=== PATIENT | male | born 1990 | race Caucasian/White ===

== ENCOUNTER 2016-10-16 13:31 | Observation (INO) ==
[2016-10-16 14:06] LABS: Bilirubin,Urine Negative (Negative); Blood,Urine Negative (Negative); Clarity,Urine Clear (Clear); Color,Urine Yellow (Yellow); Glucose,Urine (UA) Normal (Normal); Ketones,Urine Negative (Negative); Leukocyte Esterase,Urine Negative (Negative); Nitrite,Urine Negative (Negative); PH,Urine 5.5 pH Units (5.0-8.0); Protein,Urine Negative (Neg-Trace); Specific Gravity,Urine 1.027 (1.010-1.025); Urobilinogen,Urine Normal (Normal)
--- NOTE | 2016-10-16 14:10 | Emergency Department Note ---
Disposition Clinical Impression: Appendicitis Qualifiers: Appendicitis type: acute appendicitis Acute appendicitis type: unspecified acute appendicitis type Qualified Code(s): K35.80 - Unspecified acute appendicitis Disposition: Admitted As Inpatient Condition: Good Referrals: NO,PCP [Primary Care Provider] - Forms: Work/School Release, ED Satisfaction Letter Abdominal Pain HPI - General Chief Complaint: ED Abdominal Pain Stated Complaint: sent from UC// appendix problems Time Seen by Provider: 10/16/16 13:44 Source: patient Mode of arrival: ambulatory Limitations: no limitations Nursing Notes Reviewed: Yes Vital Signs Reviewed: Yes - History of Present Illness Pt Subjective Complaint: abdominal pain Onset (ago): day(s) (1) Consistency: constant Location: RLQ Pain Scale: 4 Quality: aching Migration to: RLQ Improves with: nothing Worsens with: movement Associated symptoms: Reports: denies other symptoms Treatments prior to arrival: none - Related Data Allergies Allergy/AdvReac Type Severity Reaction Status Date / Time No Known Allergies Allergy Verified 10/16/16 11:49 All systems ED: reviewed and negative except as stated. Constitutional: Denies: fever, chills Gastrointestinal: Denies: nausea, vomiting Abdominal Pain PMH - Past Medical History Medical history: Reports: no medical history Male Surgical History: Reports: no surgical history Psychiatric history: Reports: no psych history - Social History Smoking status: Never smoker Alcohol use: Reports: none Drug use: Reports: none Physical Exam - General Limitations: no limitations General appearance: alert - Head Head exam: atraumatic, normocephalic, normal inspection - Eye Eye exam: Present: normal appearance, PERRL, EOMI - Expanded Eye Exam Pupils: Left: reactive - ENT ENT exam: normal exam, normal oropharynx, mucous membranes moist - Expanded ENT Exam External ear exam: Present: normal external inspection Mouth exam: Present: normal external inspection Teeth exam: Present: normal inspection Throat exam: Present: normal inspection - Neck Neck exam: Present: normal inspection, full ROM, trachea midline - Chest Chest inspection: Present: normal inspection, symmetric chest wall rise - Respiratory Respiratory exam: Present: normal lung sounds bilaterally - Cardiovascular Cardiovascular exam: Present: regular rate, normal rhythm, normal heart sounds - Abdominal Exam Abdominal exam: Present: soft, guarding, normal bowel sounds Abdominal tenderness: Present: RLQ, moderate - Extremities Exam Extremities exam: Present: normal inspection, full ROM. Absent: tenderness, pedal edema - Expanded Upper Extremity Exam Shoulder exam: Present: normal inspection, full ROM Arm exam: Present: normal inspection, full ROM Elbow exam: Present: normal inspection, full ROM Forearm/Wrist exam: Present: normal inspection, full ROM Hand exam: Present: normal inspection, full ROM Vascular exam: Normal: capillary refill, radial pulse - Expanded Lower Extremity Exam Hip/Pelvis exam: Present: normal inspection, full ROM Upper leg exam: Present: normal inspection, full ROM Knee exam: Present: normal inspection, full ROM Lower leg exam: Present: normal inspection, full ROM Ankle exam: Present: normal inspection, full ROM Foot/toe exam: Present: normal inspection, full ROM Neurovascular/Tendon exam: Absent: motor deficit, sensory deficit, tendon deficit - Back Exam Back exam: Present: normal inspection, full ROM. Absent: tenderness - Neurological Exam Neurological exam: Present: alert, oriented X3 - Expanded Neurological Exam Patient oriented to: Present: person, place, time Coma Scale Eye Opening: Spontaneous Coma Scale Motor Response: Obeys Commands Coma Scale Verbal Response: Oriented Coma Scale Total: 15 - Psychiatric Psychiatric exam: Present: normal affect, normal mood - Skin Skin exam: Present: warm, dry, intact, normal color Course - Consultations Consultation #1: DR. BEAL WILL BE TO THE ER TO SEE THE PATIENT Time: 16:02 Vital Signs Temperature 98.3 F 10/16/16 13:42 Pulse Rate 67 10/16/16 13:42 Respiratory Rate 14 10/16/16 13:42 Blood Pressure 128/76 10/16/16 13:42 O2 Sat by Pulse Oximetry 96 10/16/16 13:42 Temperature 98.3 F 10/16/16 13:42 Pulse Rate 70 10/16/16 15:13 Respiratory Rate 18 10/16/16 15:13 Blood Pressure 120/75 10/16/16 15:13 O2 Sat by Pulse Oximetry 98 10/16/16 15:13 Oxygen Delivery Oxygen Delivery Room Air Abdominal Pain - Differential Diagnosis Differential Diagnosis: Likely: acute appendicitis, constipation, diverticulitis , gastroenteritis, pancreatitis - Medical Records Medical records reviewed: Yes I reviewed the patient's medical records. - Lab Data Lab results reviewed: Yes I reviewed the patient's lab results. Result diagrams: 10/16/16 14:08 10/16/16 14:08 Lab Results 10/16/16 10/16/16 10/16/16 Range/Units 13:57 14:08 14:08 WBC 6.4 (4.3-11.1) K/mcL RBC 5.80 H (4.19-5.50) M/mcL Hgb 16.2 (12.9-16.9) g/dL Hct 47.7 (37.5-50.1) % MCV 82.2 L (83.0-100.0) fL MCH 27.9 L (28.0-33.3) pg MCHC 34.0 (31.6-35.5) g/dL RDW 12.5 (11.5-14.5) % Plt Count 212 (140-400) K/mcL MPV 10.4 (9.4-12.4) fL Immature Gran % 0.3 (0-4) % Seg Neutrophils % 66.1 % Lymphocytes % 22.3 % Monocytes % 7.5 % Eosinophils % 3.6 % Basophils % 0.2 % Neutrophils # 4.2 (1.6-8.9) K/mcL Lymphocytes # 1.4 (0.6-4.6) K/mcL Monocytes # 0.5 (0.0-1.3) K/mcL Eosinophils # 0.2 (0.0-0.6) K/mcL Basophils # 0.0 (0.0-0.2) K/mcL Sodium 139 (136-145) mEq/L Potassium 3.8 (3.5-4.5) mEq/L Chloride 108 (98-109) mEq/L Carbon Dioxide 24 (19-29) mEq/L BUN 14 (8-26) mg/dL Creatinine 0.96 (0.72-1.25) mg/dL Est GFR ( Amer) > 60 (> 60) Est GFR (Non-Af Amer) > 60 (> 60) BUN/Creatinine Ratio 15 (6-26) Glucose 95 (70-99) mg/dL Calculated Osmolality 288 (280-300) Calcium 9.6 (8.6-10.8) mg/dL Total Bilirubin 0.9 (0.2-1.2) mg/dL Direct Bilirubin 0.3 (0.0-0.5) mg/dL Indirect Bilirubin 0.6 (0.0-1.2) mg/dL AST 15 (5-34) Units/L ALT 9 (0-55) Units/L Alkaline Phosphatase 70 (38-126) Units/L C-Reactive Protein 22 H (Less than 5) mg/L Serum Total Protein 7.8 (6.0-8.3) g/dL Albumin 4.3 (3.5-5.0) g/dL Globulin 3.5 (2.4-3.5) g/dL Albumin/Globulin Ratio 1.2 (1.1-2.2) Lipase 9 (8-78) Units/L Urine Color Yellow (Yellow) Urine Clarity Clear (Clear) Urine pH 5.5 (5.0-8.0) pH Units Ur Specific [place] 1.027 H (1.010-1.025) Urine Protein Negative (Neg-Trace) mg/dL Urine Glucose (UA) Normal (Normal) mg/dL Urine Ketones Negative (Negative) mg/dL Urine Blood Negative (Negative) Urine Nitrite Negative (Negative) Urine Bilirubin Negative (Negative) Urine Urobilinogen Normal (Normal) mg/dL Ur Leukocyte Esterase Negative (Negative) Ur Culture Indicated? NO (NO) - Radiology Data Radiology results reviewed: Yes I reviewed the patient's radiology results.
[2016-10-16 14:15] LABS: Basophils % 0.2 %; Eosinophils # 0.2 K/mcL (0.0-0.6); Eosinophils % 3.6 %; Hematocrit 47.7 % (37.5-50.1); Hemoglobin 16.2 g/dL (12.9-16.9); Immature Granulocytes % 0.3 % (0-4); Lymphocytes # 1.4 K/mcL (0.6-4.6); Lymphocytes % 22.3 %; Mean Corpuscular Hemoglobin 27.9 pg (28.0-33.3); Mean Corpuscular Volume 82.2 fL (83.0-100.0); Mean Platelet Volume 10.4 fL (9.4-12.4); Monocytes # 0.5 K/mcL (0.0-1.3); Monocytes % 7.5 %; Neutrophils # 4.2 K/mcL (1.6-8.9); Platelet Count 212 K/mcL (140-400); Red Cell Distribution Width 12.5 % (11.5-14.5); Segmented Neutrophils % 66.1 %
[2016-10-16 14:37] LABS: Alanine Aminotransferase 9 Units/L (0-55); Albumin 4.3 g/dL (3.5-5.0); Albumin/Globulin Ratio 1.2 (1.1-2.2); Alkaline Phosphatase 70 Units/L (38-126); Aspartate Amino Transferase 15 Units/L (5-34); BUN/Creatinine Ratio 15 (6-26); Bilirubin,Direct 0.3 mg/dL (0.0-0.5); Bilirubin,Indirect 0.6 mg/dL (0.0-1.2); Bilirubin,Total 0.9 mg/dL (0.2-1.2); Blood Urea Nitrogen 14 mg/dL (8-26); Calcium 9.6 mg/dL (8.6-10.8); Carbon Dioxide 24 mEq/L (19-29); Chloride 108 mEq/L (98-109); Globulin 3.5 g/dL (2.4-3.5); Glucose 95 mg/dL (70-99); Lipase 9 Units/L (8-78); Osmolality,Calculated 288 (280-300); Potassium 3.8 mEq/L (3.5-4.5); Sodium 139 mEq/L (136-145); Total Protein 7.8 g/dL (6.0-8.3); eGFR For African Americans > 60 (> 60); eGFR For Non-African Americans > 60 (> 60)
[2016-10-16 14:48] LABS: C-Reactive Protein 22 mg/L (Less than 5)
--- NOTE | 2016-10-16 17:00 | Anesthesia Evaluation PreOp ---
Date of Encounter: 10/16/16 Time of Encounter: 16:56 - Past History Planned Operation: Lap. Appy Cardiac History: Denies any Significant Hx Pulmonary History: Denies Any Significant HX COMPUTING CONSULTANT History: Denies Any Significant HX Other Medical History: Denies Any Significant HX Anesthesia History: No Prior Anesthetic Complications, Past Anesthesia Alcohol Use: none Drug use: none Medications and Allergies No Known Home Drugs 10/16/16 [History] Allergies No Known Allergies Allergy (Verified 10/16/16 11:49) - Meds/Allergy Pre-op Review Medications Reviewed: Yes Allergies Reviewed: Yes Beta Blockers on Current Med List: No Anesthesia Results - Labs 10/16/16 14:08 10/16/16 14:08 Anesthesia Exam O2 Sat Height 1.75 m Weight 88.451 kg O2 Sat by Pulse Oximetry 98 O2 Sat by Pulse Oximetry 96 Vital Signs Temp Pulse Resp BP Pulse Ox 98.3 F 67 14 128/76 96 10/16/16 13:42 10/16/16 13:42 10/16/16 13:42 10/16/16 13:42 10/16/16 13:42 Vital Signs/O2 Sat, Most Current Temp Pulse Resp BP Pulse Ox 98.3 F 70 18 120/75 98 10/16/16 13:42 10/16/16 15:13 10/16/16 15:13 10/16/16 15:13 10/16/16 15:13 Height: 5'9'' Weight: 195 NPO (# of Hours): > 8 hrs Pain Scale: 0 Pain Scale Used: Numeric (1 - 10) - HEENT Pupil (Motor): Pupils equal, EOMI Mallampati: I Teeth: Normal Oral Opening: Greater than 3 - COMPUTING CONSULTANT LOC: Oriented COMPUTING CONSULTANT Motor: Normal RUE, Normal LUE, Normal RLE, Normal LLE, Normal Face COMPUTING CONSULTANT Sensory: Normal: RUE, LUE, RLE, LLE, Face - Cardiac Rhythm: Regular Murmur: None JVD: No Carotid Bruit: No - Pulmonary Breath Sounds: bilateral Clear Respiratory Effort: Symmetrical Anesthesia Assess/Plan ASA Score: 1, E Modified Faiza Scale for Level of Consciousness: Cooperative, oriented, and tranquil Anesthetic Plan: General Autologous Blood: Yes Monitoring Plan: Standard Monitors Recovery Plan: PACU
[2016-10-16] MEDS ORDERED: Ondansetron 4 MG/2 ML VIAL IVP ONE (17:03)
[2016-10-16] MEDS ORDERED: *HR* Promethazine 25 MG/ML VIAL IVP PRN (17:03)
[2016-10-16] MEDS ORDERED: *HR* HYDROmorphone (PF) 1 MG/ML SYRINGE IVP PRN ×2 (17:03→19:50)
[2016-10-16] MEDS ORDERED: Albuterol 2.5 MG/3 ML NEBULIZER IH ONE (17:03)
[2016-10-16] MEDS ORDERED: *HR* Labetalol 20 MG/4 ML SYRINGE IVP PRN (17:03)
--- NOTE | 2016-10-16 17:03 | General Surg History&Physical ---
<Nahed Cheung - Last Filed: 10/16/16 16:58> Date of Encounter: 10/16/16 Time of Encounter: 16:58 Assessment and Plan (1) Appendicitis Current Visit: Yes Status: Acute The assessment and plan as outlined above was discussed with the patient and/or family members who expressed understanding and agreement. All questions were answered. Patient presents with signs and symptoms of acute appendicitis. CT scan demonstrated dilated appendix with evidence of inflammation. CT may be lagging behind given his clinical findings. He does have exquisite point tenderness at McBurney's point. Rovsing negative. Psoas/obturator positive. No tachycardia or peritoneal signs/rebound/guarding/rigidity. No elevated white cell count/leukocytosis or fever. Surgical intervention vs medical management discussed. Patient elected for surgical intervention at this time. Plan: Acute appendicitis Nothing by mouth IV fluids Supportive care and pain control Laparoscopic appendectomy to reduce the chances of perforation and intra- abdominal abscess formation. Risks, benefits, alternatives, expected outcomes reviewed with the patient is agreement to proceed to the operating room with for laparoscopic appendectomy in the next 24 hours. Written Consent was obtained and placed in the chart. Qualifiers: Appendicitis type: acute appendicitis Acute appendicitis type: unspecified acute appendicitis type Qualified Code(s): K35.80 - Unspecified acute appendicitis History of Present Illness Chief complaint: Abdominal pain HPI: Mr. Cole is a 26 year old male with no significant past medical history who presents with signs and symptoms of acute appendicitis. Patient describes that yesterday afternoon he developed achy cramping periumbilical abdominal pain that became so intense it became unbearable at 10/10 pain however, he tried to work through it despite the intense nauseous feelings. Patient reports that he did not vomit however, his appetite was significantly decreased around dinnertime he tried to eat a small amount but had no interest in food. This morning he awoke with right lower quadrant pain "the pain had moved "and was more intense described as persistent sharp stabbing pain located in the right lower quadrant with no alleviating factors, exacerbated with ambulation or movement of his abdomen. Patient states that he went to the [place] urgent care and was transferred to the emergency department for further evaluation. No abdominal surgeries Last meal was around [address] scan demonstrated dilated appendix with evidence of inflammation. Patient did not have an elevated white cell count/leukocytosis however he does have exquisite tenderness at McBurney's point. Surgical intervention is indicated at this time. Past Med Surg Social Fam HX - Past Medical History Medical history: no medical history Psychiatric history: no psych history - Social History Smoking Status: Never smoker Smokeless Tobacco Status: No Alcohol use: none Drug use: none Medications and Allergies No Known Home Drugs 10/16/16 [History] Allergies No Known Allergies Allergy (Verified 10/16/16 11:49) Review of Systems All systems PM: A 10-system review of systems was performed and is negative for pertinent findings except as documented above in the HPI. - Constitutional anorexia, no chills, no fever(s) - EENT Nose, mouth and throat: no dizziness, no headache(s), no neck pain, no sore throat, no throat swelling, no tongue swelling, no vertigo - Cardiovascular no chest pain, no dyspnea, no edema - Respiratory no cough, no wheezing - Gastrointestinal abdominal pain, cramping, nausea, no belching, no bloating, no coffee ground emesis, no constipation, no diarrhea, no dyspepsia, no dysphagia, no hematemesis , no hematochezia, no melena, no vomiting - Genitourinary no hematuria - Musculoskeletal no arthralgias, no atrophy, no joint swelling, no muscle cramps, no muscle weakness, no myalgias - Integumentary no lesions, no pruritus, no jaundice - Neurological no confusion, no loss of vision, no syncope - Psychiatric no anxiety, no confusion, no depression - Endocrine no palpitations, no polydipsia, no polyphagia, no polyuria - Hematologic/Lymphatic no easy bleeding, no easy bruising, no lymphadenopathy - Allergic/Immunologic no tongue swelling, no throat swelling, no uticaria, no wheezing General Surgery Exam Initial Vital Signs Temp Pulse Resp BP Pulse Ox 98.3 F 67 14 128/76 96 10/16/16 13:42 10/16/16 13:42 10/16/16 13:42 10/16/16 13:42 10/16/16 13:42 - General physical appearance well developed, well nourished, no distress, moderate pain - Eyes PERRL, normal ocular movement - ENT normal mucosa, atraumatic, normocephalic, CN 2-12 grossly intact - Neck no masses, trachea midline, no lymphadectomy - Respiratory normal expansion, normal respiratory effort, clear to auscultation - Cardiovascular Cardiovascular exam: Present: RRR, no murmurs/rubs/gallops. Absent: JVD - Abdomen Abdomen general surgery: Present: bowel sounds present, soft. Absent: guarding , rigid Abdominal Tenderness: Present: RLQ (Exquisite point tenderness over right lower quadrant/McBurney's point) - Integumentary Integumentary general surgery: Present: warm and dry, no abnormal pigmentation - Neurologic Present: CN 2-12 grossly intact, normal coordination, normal sensation - Musculoskeletal Present: normal gait, normal posture - Psychiatric Psychiatric general surgery: Present: A&Ox3, appropriate, speech is normal, memory intact Results - Labs 10/16/16 14:08 10/16/16 14:08 Abnormal lab results RBC 5.80 M/mcL (4.19-5.50) H 10/16/16 14:08 MCV 82.2 fL (83.0-100.0) L 10/16/16 14:08 MCH 27.9 pg (28.0-33.3) L 10/16/16 14:08 C-Reactive Protein 22 mg/L (Less than 5) H 10/16/16 14:08 Ur Specific [place] 1.027 (1.010-1.025) H 10/16/16 13:57 All other labs normal. <Zackery Swift - Last Filed: 10/16/16 19:53> Date of Encounter: 10/16/16 History of Present Illness HPI: Mr. Cole is a 26 year old male Review of Systems All systems PM: A 10-system review of systems was performed and is negative for pertinent findings except as documented above in the HPI. General Surgery Exam Initial Vital Signs Temp Pulse Resp BP Pulse Ox 98.3 F 67 14 128/76 96 10/16/16 13:42 10/16/16 13:42 10/16/16 13:42 10/16/16 13:42 10/16/16 13:42 Results - Labs 10/16/16 14:08 10/16/16 14:08 Abnormal lab results RBC 5.80 M/mcL (4.19-5.50) H 10/16/16 14:08 MCV 82.2 fL (83.0-100.0) L 10/16/16 14:08 MCH 27.9 pg (28.0-33.3) L 10/16/16 14:08 C-Reactive Protein 22 mg/L (Less than 5) H 10/16/16 14:08 Ur Specific [place] 1.027 (1.010-1.025) H 10/16/16 13:57 All other labs normal. - Attending Attestation I examined this patient and my medical decision-making was reviewed with the FARM CONTRACTOR BUYER/PA/Advanced Practice Nurse/Resident Physician. I agree with the documented findings, disposition and treatment plan as described except to the extent set forth below. The patient is seen and evaluated in the emergency room. I personally examined the patient as well as reviewed his CAT scan results. I have recommended appendectomy for acute appendicitis. We will proceed on an urgent basis later today. Zackery Swift MD FACS
[2016-10-16] MEDS ORDERED: Ondansetron 4 MG/2 ML VIAL ONE (17:08)
[2016-10-16] MEDS ORDERED: Lidocaine -MPF 2% 2 ML VIAL ONE (17:08)
[2016-10-16] MEDS ORDERED: *HR* Rocuronium Bromide 50 MG/5 ML VIAL ONE (17:08)
[2016-10-16] MEDS ORDERED: Dexamethasone 4 MG/ML VIAL ONE (17:08)
[2016-10-16] MEDS ORDERED: *HR* Succinylcholine 200 MG/10 ML VIAL IVP ONE (17:08)
[2016-10-16] MEDS ORDERED: *HR* FentaNYL (PF) 100 MCG/2 ML VIAL ONE (17:09)
[2016-10-16] MEDS ORDERED: *HR* Midazolam HCl 2 MG/2 ML VIAL ONE (17:09)
[2016-10-16] MEDS ORDERED: *HR* Propofol 200 MG/20 ML VIAL IVP ONE (17:09)
[2016-10-16] MEDS ORDERED: CefOXitin 1,000 MG VIAL ONE (17:17)
[2016-10-16] MEDS ORDERED: CefOXitin 2,000 MG VIAL IVPB ONE (17:55)
[2016-10-16] MEDS ORDERED: Neostigmine Methylsulfate 3 MG/3 ML SYRINGE ONE (19:02)
[2016-10-16] MEDS ORDERED: Ketorolac 30 MG/ML VIAL ONE (19:08)
[2016-10-16] MEDS: *HR* HYDROmorphone (PF) 1 MG/ML SYRINGE IVP PRN ×2 (19:15→19:21)
--- NOTE | 2016-10-16 19:22 | Operative Note ---
Date of procedure: 10/16/16 Pre-op diagnosis: Acute appendicitis Post-op diagnosis: same Procedure: Laparoscopic appendectomy Anesthesia: VICTOR HUGO Surgeon: Zackery Swift Estimated blood loss (cc): 20 Condition: stable Disposition: floor Procedure in Detail: After informed consent the patient was taken to the major operative suite and placed in supine position and given adequate general endotracheal anesthesia. Timeout taken patient is identified. The abdomen is prepped and draped in sterile fashion utilizing ChloraPrep standard draping techniques. Vertical midline incision is made just below the umbilicus and dissected down to level of fascia 2 traction stitches were placed. The Anderson trocar was placed visualizing the abdomen and the abdomen was insufflated to 15 mmHg pressure CO2. I placed a 5 mm trocar in the suprapubic area and a 12 mm trocar in the right subcostal area. The appendix was visualized and acutely inflamed but there was no pus. I opened the window between the mesial appendix and the [place] the cecum. The base the cecum was divided with a gastrointestinal load of the laparoscopic stapler. The mesoappendix was divided with a vascular load on the stapler. This gave an excellent technical result and excellent hemostasis. The appendix was removed in a specimen bag through the umbilical port site the umbilical port was replaced. I irrigated with copious amounts of antibiotic containing solution. There was no evidence of bleeding or staple line leak. All trochars were removed fascia was closed with 0 Vicryl skin with 201 4-0 Vicryl. He tolerated the procedure very well and was transferred to recovery in stable condition.
--- NOTE | 2016-10-16 19:44 | Anesthesia Evaluation Post Op ---
Date of Encounter: 10/16/16 Time of Encounter: 19:43 - Vital Signs Vital Signs: Last Vital Signs Temp 98.5 F 10/16/16 19:42 Pulse 65 10/16/16 19:42 Resp 14 10/16/16 19:42 BP 114/65 10/16/16 19:42 Pulse Ox 94 10/16/16 19:42 - Lungs Lungs: Clear Ascult./Percussion - Airway Airway: Non-obstructed - Cardiovascular Regular Rate - Mental Status Mental Status: Alert & Oriented, Answers Appropriately - Pain Pain Scale: 4 - Nausea Vomiting Nausea Vomiting: Not Present - Hydration Hydration: Ice chips - Discharge PostOp Status: Transfer Patient to floor
[2016-10-16] MEDS ORDERED: 0.9 % Sodium Chloride 1,000 ML IVC SCH (19:50)
[2016-10-16] MEDS ORDERED: *HR* OxyCODONE/APAP 5/325 TABLET PO PRN (19:50)
[2016-10-16] MEDS ORDERED: Ondansetron 4 MG/2 ML VIAL IVP PRN (19:50)
[2016-10-16] MEDS: cefOXitin 2,000 MG in D5% in Water (Mini-Bag+) 100 ML IVPB SCH (23:06)
[2016-10-17 04:24] VITALS: BP 108/67
--- NOTE | 2016-10-17 06:40 | Discharge Summary ---
Addendum entered and electronically signed by Nahed Cheung DO 10/17/16 08:24: Follow up in 10 -[address] Swift. Our office will call to schedule an appointment. If you do not hear from our offices in the next 3 business days please call [facility] at [phone] Original Note: <Nahed Cheung - Last Filed: 10/17/16 08:18> Date of Encounter: 10/17/16 Time of Encounter: 06:38 - Discharge Diagnosis (1) Appendicitis Priority: Primary Status: Resolved Comments: Patient is postop day 1 laparoscopic appendectomy performed by Dr. Swift on 10/16. Patient is eating a regular diet without difficulty. Patient is passing gas. Patient has urinated without difficulty. Patient is up to ambulate. Patient feels ready to go home. Reports minimal pain on palpation of right lower quadrant as expected postoperative pain. Incisions are clean dry and intact. No peritoneal signs. Vital stable. Afebrile. Nonfocal neuro exam. Patient is recovering well and ambulating around the room in good spirits. Qualifiers: Appendicitis type: acute appendicitis Acute appendicitis type: unspecified acute appendicitis type Qualified Code(s): K35.80 - Unspecified acute appendicitis - Discharge Medications Prescriptions: OxyCODONE/APAP 5/325 [Percocet 5/325 MG] 1 each PO Q4HR PRN #14 tablet PRN Reason: Pain (1-5) Docusate Sodium 100 mg PO 1-3XD PRN #30 capsule PRN Reason: Constipation Ondansetron HCl [Zofran] 4 mg PO Q4-8H PRN #10 tablet PRN Reason: Nausea Home Medications: Docusate Sodium 100 mg PO 1-3XD PRN #30 capsule 10/17/16 [Rx] Ondansetron HCl [Zofran] 4 mg PO Q4-8H PRN #10 tablet 10/17/16 [Rx] OxyCODONE/APAP 5/325 [Percocet 5/325 MG] 1 each PO Q4HR PRN #14 tablet 10/17/16 [Rx] Allergies/Adverse Reactions: Allergies No Known Allergies Allergy (Verified 10/16/16 11:49) General Surgery Exam Initial Vital Signs Temp Pulse Resp BP Pulse Ox 98.3 F 67 14 128/76 96 10/16/16 13:42 10/16/16 13:42 10/16/16 13:42 10/16/16 13:42 10/16/16 13:42 - General physical appearance well developed, well nourished, no distress, no pain - Eyes PERRL, normal ocular movement - ENT normal mucosa, atraumatic, normocephalic, CN 2-12 grossly intact - Neck trachea midline - Respiratory normal expansion, normal respiratory effort, clear to auscultation - Cardiovascular Cardiovascular exam: Present: RRR, no murmurs/rubs/gallops. Absent: JVD - Abdomen Abdomen general surgery: Present: bowel sounds present, soft, tender ( Appropriate postoperative tenderness as expected). Absent: tympanic, distended , masses, peritoneal - Incision Incision: Present: clean and dry, intact - Integumentary Integumentary general surgery: Present: warm and dry, no abnormal pigmentation. Absent: rash - Neurologic Present: CN 2-12 grossly intact, normal coordination, normal sensation - Musculoskeletal Present: normal gait, normal posture - Psychiatric Psychiatric general surgery: Present: A&Ox3, appropriate, speech is normal, memory intact Date of admission: 10/16/16 16:38 Primary care physician: PCP NO Discharging clinician: Zackery Swift Anticipated date of discharge: 10/17/16 - Patient Status Disposition: Home, Self-Care Condition: Good Overall status at discharge: patient is progressing back to baseline - Discharge Instructions Instructions: Appendicitis (GEN), Exploratory Laparoscopy (DC) Follow Up With: NO,PCP [Primary Care Provider] - Additional Instructions: 1. May shower today. No tub bath for 2 weeks. 2. Wash incisions with soap and water and pat dry daily. 3. No lifting more than 20 lbs for [address] when off narcotics for over 24 hours and able to react safely in the car. 5. May climb stairs. - Diet and Activity Activity: increase activity as tolerated Diet: advance to your usual diet - Hospital Course Hospital course: Mr. Cole is a 26 year old male - Time Spent with Patient Total time spent providing and/or coordinating discharge services: Less than 30 minutes <Zackery Swift - Last Filed: 10/19/16 07:14> Date of Encounter: 10/17/16 General Surgery Exam Initial Vital Signs Temp Pulse Resp BP Pulse Ox 98.3 F 67 14 128/76 96 10/16/16 13:42 10/16/16 13:42 10/16/16 13:42 10/16/16 13:42 10/16/16 13:42 Date of admission: 10/16/16 16:38 Primary care physician: PCP NO - Hospital Course Hospital course: Mr. Cole is a 26 year old male - Time Spent with Patient Total time spent providing and/or coordinating discharge services: - Attending Attestation I examined this patient and my medical decision-making was reviewed with the ARTIFICIAL FLOWERS SUPERVISOR/PA/Advanced Practice Nurse/Resident Physician. I agree with the documented findings, disposition and treatment plan as described except to the extent set forth below. The patient is seen and evaluated on morning rounds. His preoperative pain syndrome is gone. His incisions looked good. He is ready for discharge. Zackery Swift MD FACS
[2016-10-17] MEDS: cefOXitin 2,000 MG in D5% in Water (Mini-Bag+) 100 ML IVPB SCH (07:22)
== END 2016-10-17 09:39 | disposition home or self-care (01) ==
LOC: 3ANU 13:31 → EMEROO 13:31 → 3ANU 17:23
PROVIDERS: ADMIT Surgery; ATTEND Surgery